=== PATIENT | female | born 1935 | race Hispanic/Latino ===

== ENCOUNTER 2019-06-23 12:36 | Outpatient (CLI) | payer MEDICARE ==
--- NOTE | 2019-06-24 12:17 | Ultrasound Report ---
RIGHT BREAST ULTRASOUND HISTORY: A lower inner circumscribed mammographic nodule which is increased in size. COMPARISON: 05/05/2019 FINDINGS: Sonographic evaluation focused upon the lower inner location of the right breast demonstrat es no distinct abnormality to correlate with the mammographic nodule. A a few tiny cysts are identi fied 4-6 o'clock but they are all within 4 to 5 cm from the nipple the mammographic nodule is approxi mately 11 cm from the nipple. No solid mass or shadowing. IMPRESSION: A few tiny benign cysts reporting 6:00 4 to 5 cm from the nipple. No mass or cyst to correlate with t he mammographic nodule. Recommend right stereotactic needle biopsy based on the mammographic findings . BI-RADS Category 4: Suspicious Signer Name: Gio Chery MD Signed: 06/24/2019 12:12 PM Workstation Name: [id number]
== END 2019-06-23 12:37 | disposition home or self-care (01) ==
LOC: SPVWC 12:36
PROVIDERS: ATTEND Surgery
DX: N60.01 Solitary cyst of right breast (principal)

== ENCOUNTER 2019-12-29 14:37 | Outpatient (CLI) | payer MEDICARE | END 2019-12-29 14:38 | disposition home or self-care (01) | LOC: SPVWC 14:37 | PROVIDERS: ATTEND Surgery | DX: N60.01 Solitary cyst of right breast (principal) ==

== ENCOUNTER 2020-12-13 13:39 | Outpatient (CLI) | payer MEDICARE ==
--- NOTE | 2020-12-13 15:21 | Ultrasound Report ---
BILATERAL DIGITAL DIAGNOSTIC MAMMOGRAM WITH CAD CONVENTIONAL, 12/13/2020 RIGHT LIMITED BREAST ULTRASOUND CLINICAL INFORMATION / INDICATION: Follow-up of mildly dilated right retroareolar ducts containing de bris. ABNORMAL MAMMO R92.8 TECHNIQUE: Digital bilateral mammographic imaging was performed. Limited ultrasound was performed. Th is examination was interpreted with the benefit of Computer-Aided Detection (CAD) analysis. COMPARISON: Limited right breast ultrasound from 12/29/2019. Diagnostic bilateral mammogram from 020. FINDINGS: Breast Density: The breasts are heterogeneously dense, which may obscure small masses. MAMMOGRAPHIC FINDINGS: No dominant mass, suspicious calcifications, or architectural distortion in ei ther breast. A biopsy clip is again seen posteriorly along the lower inner right breast. Benign-appea ring right breast nodular densities are again noted. ULTRASOUND FINDINGS: Targeted ultrasound evaluation was performed of the area of interest. Mildly di lated ducts free of debris are seen anteriorly along the retroareolar region without other significan t abnormalities. IMPRESSION: No mammographic or sonographic evidence of malignancy. Follow up recommendation: Back to schedule. BI-RADS Category 2: Benign. A "normal" or negative report should not discourage follow up or biopsy of a clinically significant f inding. A written summary of these findings will be mailed to the patient. The patient will be entered into a mammography reporting system which will generate a reminder letter for the patient's next appointmen t at the appropriate interval. According to the [employer], yearly mammograms are recommended starting at age 40 and continuing as long as a woman is in good health. Breast MRI is recommended for women with an alcira roximately 20-25% or greater lifetime risk of breast cancer, including women with a strong family his tory of breast or ovarian cancer and women who have been treated for Hodgkin's disease. Signer Name: Jay Nathan MD Signed: 12/13/2020 3:17 PM Workstation Name: [id number]
== END 2020-12-13 13:40 | disposition home or self-care (01) ==
LOC: SPVWC 13:39
PROVIDERS: ATTEND Surgery
DX: R92.8 Other abnormal and inconclusive findings on diagnostic imaging of breast (principal)
CPT/HCPCS: 77066